=== PATIENT | male | born 1940 ===

== ENCOUNTER 2016-08-08 17:03 | Inpatient (IN) | payer MEDICARE ==
--- NOTE | 2016-08-08 18:19 | RAD ---
HISTORY: weakness COMPARISON: CTA chest from 05/31/2016 FINDINGS: LUNGS: The lungs are clear. PLEURA: No significant pleural effusion identified, no pneumothorax apparent. CARDIOVASCULAR: Normal. OSSEOUS STRUCTURES: No significant abnormalities. VISUALIZED UPPER ABDOMEN: Normal. OTHER FINDINGS: None. IMPRESSION: No active pulmonary disease.
--- NOTE | 2016-08-08 18:29 | ED PDOC ---
HPI:STROKE - Time Time: 17:30 - Historian Historian: Family - Chief Complaint Chief Complaint: Weakness, Facial droop - Onset Onset: Weeks (1) - Timing Timing: Currently Symptomatic - Location Locate right:: Face Locate left: Upper extremity - Notes: Notes:: One week ago pt developed RIGHT facial droop. Seen by ENT for chronic ear infection at that time and diagnosed with bells palsy. Presented today with both RIGHT facial droop and LEFT arm drift that started this morning. Sent to ER for further evaluation. Denies headache. Denies fever. Denies blurry vision or abnormal gait. Numbness (intermittent) to bilateral arms ongoing for weeks. NIHSS Stroke Scale - Date/Time Evaluation Performed Date Performed: 08/08/16 Time Performed: 17:30 When Was NIHSS Performed: Baseline - How Severe is the Stroke Level of Consciousness: 0=Alert LOC to Questions: 0=Both comments correct LOC to commands: 0=Obeys both correctly Best Gaze: 0=Normal Visual: 0=No visual loss Facial: 2=Partial (lower face paralysis) Motor Arm - Left: 1=Drift noted before 10 sec Motor Arm - Right: 0=No drift Motor Leg - Left: 0=No drift Motor Leg - Right: 0=No drift Limb Ataxia: 0=Absent Sensory: 0=Normal Best Language: 0=No aphasia Dysarthia: 1=Mild to moderate slurring Extinction & Inattention (Neglect): 0=Normal, no object Score: 4 rTPA Inclusion/Exclusion - Refusal of Treatment Patient Refused Treatment: No - Inclusion Criteria for Altepase Patient is 18 years or Older: Yes The Clinical Diagnosis of Ischemic Stroke That is Causing a Potentially Disabling Neurological Deficit: Yes Time of Onset is Well Established to be Less Than 270 Minute Before Treatment Would Begin: No Risk/Benefit Discussed With Patient/Family Member Present: No - Exclusion Criteria for Altepase Uncontrolled Hypertension at Time of Treatment (Systolic BP above 185 or Diastolic BP above 110 mmHg): No Past Medical History Reviewed: Historical Data, Nursing Documentation, Vital Signs Vital Signs: Last Vital Signs Temp 97.7 F 08/08/16 17:22 Pulse 106 H 08/08/16 17:22 Resp 16 08/08/16 17:22 BP 140/93 H 08/08/16 17:22 Pulse Ox 98 08/08/16 17:22 - Medical History PMH: CHF, Depression, HTN, Hypercholesterolemia, Hyperthyroidism, Hypothyroidism , Parkinson's Disease, Sleep Apnea, TIA (2014) Denies: Alzheimer's Disease, Anemia, Anxiety, Arthritis, Asthma, Atrial Fibrillation, Bipolar Disorder, Bronchitis, Cardia Arrhythmia, COPD, Crohn's Disease, Dementia, Diverticulitis, Emphysema, Fractures, Gastritis, Gall Bladder Disease, HIV, Kidney Stones, Migraine, Mitral Valve Prolapse, Multiple Sclerosis, Osteoporosis, Pancreatitis, Peripheral Edema, Pneumonia, Post Traumatic Stress Disorder, Pulmonary Embolism, Chronic Kidney Disease, Rheumatoid Arthritis, Schizophrenia, Seizures, Sickle Cell Disease, Sexually Transmitted Disease - Surgical History Surgical History: Denies: Appendectomy, CABG, Carotid Endarterectomy, Cholecystectomy, Coronary Stent, Pacemaker, Tonsillectomy - Family History Family History: States: Unknown Family Hx - Home Medications Home Medications: Ambulatory Orders Medication Instructions Recorded Lorazepam [Ativan] 0.5 mg PO TID PRN 08/08/16 Aspirin [Aspirin Chewable] 81 mg PO DAILY #0 chew 08/11/16 Baclofen [Lioresal] 10 mg PO BID #14 tab 08/11/16 Carbidopa/Levodopa 25/100 mg 1 tab PO BID tab 08/11/16 [Sinemet] Clopidogrel [Plavix] 75 mg PO DAILY tab 08/11/16 Docusate [Colace] 100 mg PO TID cap 08/11/16 Ergocalciferol [Drisdol 50,000 1 cap PO Q7D cap 08/11/16 Intl Units Cap] Famotidine [Pepcid] 20 mg PO BID tab 08/11/16 Levothyroxine [Synthroid] 50 mcg PO DAILY@0630 tab 08/11/16 MetFORMIN [glucoPHAGE] 1,000 mg PO BID tab 08/11/16 QUEtiapine [SEROquel] 50 mg PO HS tab 08/11/16 SITagliptin [Januvia] 100 mg PO DAILY tab 08/11/16 Valacyclovir Hcl [Valacyclovir] 500 mg PO BID@0900,2000 08/11/16 Valsartan [Diovan] 160 mg PO DAILY tab 08/11/16 hydroCHLOROthiazide [Hydrodiuril] 25 mg PO DAILY tab 08/11/16 traMADol [Ultram] 50 mg PO Q6H PRN #0 tab 08/11/16 - Allergies Allergies/Adverse Reactions: Allergies Allergy/AdvReac Type Severity Reaction Status Date / Time No Known Allergies Allergy Verified 12/11/15 11:05 Review of Systems ROS Statement: Except As Marked, All Systems Reviewed And Found Negative (and as per HPI) Neurological: Positive for: Weakness. Negative for: Dizziness Physical Exam - Reviewed Nursing Documentation Reviewed: Yes Vital Signs Reviewed: Yes - Physical Exam Appears: Positive for: No Acute Distress Head Exam: Positive for: ATRAUMATIC, NORMOCEPHALIC Skin: Positive for: Warm Eye Exam: Positive for: EOMI, PERRL ENT: Negative for: Pharyngeal Erythema, Tonsillar Exudate Neck: Positive for: Supple, Pain On Movement Of Neck Cardiovascular/Chest: Positive for: Regular Rate, Rhythm. Negative for: Murmur Respiratory: Positive for: Normal Breath Sounds. Negative for: Wheezing, Respiratory Distress Gastrointestinal/Abdominal: Positive for: Bowel Sounds, Soft. Negative for: Tenderness Back: Positive for: Normal Inspection. Negative for: Vertebral Tenderness Extremity: Negative for: Tenderness, Deformity Lymphatic: Negative for: Adenopathy Neurologic/Psych: Positive for: Alert, Oriented, Motor/Sensory Deficits (see NIHSS), Cerebellar Tests (normal) - Laboratory Results Result Diagrams: 08/09/16 06:15 08/09/16 06:15 - ECG O2 Sat by Pulse Oximetry: 98 Medical Decision Making Medical Decision Making: Impression: Focal weakness. Ddx include but not limited to TIA, CVA, cervical radiculopathy, electrolyte abnormalities, core compression, bells palsy Pt needs hospitalization pending ER workup. CT head: No bleed. No acute findings. [facility] L[facility] resident for admission. Disposition - Clinical Impression Clinical Impression: Weakness of one side of body Counseled Patient/Family Regarding: Studies Performed, Diagnosis - Disposition Disposition Time: 18:00 Condition: GOOD - Pt Status Changed To: Hospital Disposition Of: Inpatient - Admit Certification Admit to Inpatient:: After my assessment, the patient will require hospitalization for at least two midnights. This is because of the severity of symptoms shown, intensity of services needed, and/or the medical risk in this patient being treated as an outpatient. - POA Present On Arrival: Falls Or Trauma (May 2016)
[2016-08-08 18:35] LABS: BASO # 0.1 K/uL (0.0-0.2); BASO % 0.9 % (0.0-2.0); EOS # 0.4 K/uL (0.0-0.7); EOS % 3.5 % (0.0-4.0); HEMATOCRIT 36.8 % (35.0-51.0); LYMPH # 4.2 K/uL (1.0-4.3); MEAN CELL VOLUME 85.2 fl (80.0-94.0); MEAN CORPUSCULAR HEMOGLOBIN 28.5 pg (27.0-31.0); MEAN CORPUSCULAR HGB CONC 33.4 g/dL (33.0-37.0); MEAN PLATELET VOLUME 8.3 fl (7.2-11.7); MONO # 0.7 K/uL (0.0-0.8); NEUT # 6.5 K/uL (1.8-7.0); NEUT % 54.6 % (50.0-75.0); NRBC % 0.1 % (0.0-0.0)
[2016-08-08 18:46] LABS: ALB/GLOB RATIO 1.1 (1.0-2.1); ALKALINE PHOSPHATASE 107 U/L (38-126); ALT/SGPT 23 U/L (21-72); AST/SGOT 24 U/L (17-59); BILIRUBIN,TOTAL 0.3 mg/dl (0.2-1.3); BLOOD UREA NITROGEN 19 mg/dl (9-20); CALCIUM 10.1 mg/dL (8.4-10.2); CARBON DIOXIDE 28 mmol/L (22-30); CHLORIDE 96 mmol/L (98-107); CHOLESTEROL 183 mg/dL (0-199); GFR AFRICAN-AMERICAN > 60; GLUCOSE,RANDOM 165 mg/dL (75-110); MAGNESIUM 1.6 MG/DL (1.6-2.3); PHOSPHOROUS 4.1 mg/dl (2.5-4.5); SODIUM 134 mmol/l (132-148); TOTAL PROTEIN 7.4 G/DL (6.3-8.2)
--- NOTE | 2016-08-08 19:21 | CT ---
EXAM: CT Head Without Intravenous Contrast. CLINICAL HISTORY: 76 years old, male; Signs and symptoms; Weakness, facial; Additional info: Weakness right face and bilateral arma TECHNIQUE: Axial computed tomography images of the head/brain without intravenous contrast. This CT exam was performed using one or more of the following dose reduction techniques: automated exposure control, adjustment of the mA and/or kV according to patient size, and/or use of iterative reconstruction technique. Coronal and sagittal reformatted images were created and reviewed. EXAM DATE/TIME: 08/08/2016 5:40 PM COMPARISON: CT - HEAD W/O CONTRAST 05/30/2016 1:58:50 PM FINDINGS: Brain: There is prominence of sulci gyri and ventricles. There is no midline shift. There is decreased attenuation in periventricular white matter. There are no focal masses. There are no focal hemorrhages. Shahid-white differentiation is visualized. Ventricles: See above. Bones: Cranial vault is intact. Soft tissues: unremarkable Sinuses: There is no acute sinusitis. Ears and mastoids: Middle ears are unremarkable. There is partial opacification of the mastoid tips bilaterally, unchanged. Orbits: Orbits are incompletely imaged IMPRESSION: Atrophy and small vessel disease, no bleed
--- NOTE | 2016-08-08 19:30 | CT ---
EXAM: CT Cervical Spine Without Intravenous Contrast. CLINICAL HISTORY: 76 years old, male; Signs and symptoms; Numbness; Additional info: Bilateral numbness arms TECHNIQUE: Axial computed tomography images of the cervical spine without intravenous contrast. This CT exam was performed using one or more of the following dose reduction techniques: automated exposure control, adjustment of the mA and/or kV according to patient size, and/or use of iterative reconstruction technique. Coronal and sagittal reformatted images were created and reviewed. EXAM DATE/TIME: 08/08/2016 5:42 PM COMPARISON: CR - CERVICAL SPINE COMP W/ F E 08/08/2015 2:44:39 PM FINDINGS: Vertebrae: There is straightening of the cervical lordosis. There is no prevertebral soft tissue swelling. 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 There is fusion of the anterior arch to the clivus. There is fusion of the lateral masses to the skull base. There is absence of the posterior arch of C1.Relationship of the dens with lateral masses of C1 is anatomic. There is minimal anterior wedging at C3, age-indeterminate. C4 to T1 vertebral bodies are normal in height. Posterior elements C2 and T1 are intact. There is minimal anterolisthesis C4 on C5, degenerative. There is degenerative change with disc space narrowing at multiple levels. There is degenerative facet joint disease at multiple levels.Facet joints align anatomically.Spinous processes align in the expected fashion.Bony structures are osteopenic. Discs/spinal canal/neural foramina: See above. Soft tissues: See above. Thyroid: Thyroid is not optimally demonstrated. Lung apices: Lung apices are not optimally evaluated. 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
[2016-08-08 19:32] LABS: PARTIAL THROMBOPLASTIN TIME 27.3 SECONDS (23.3-32.5)
--- NOTE | 2016-08-08 20:35 | CP.PCM.HP ---
History of Present Illness - History of Present Illness History of Present Illness: 76 yo male with PMHx of DM, HTN, Hypothyroidism, HLD, Parkinson disease, chronic mastoiditis presented to PMD clinic earlier today for evaluation of bilateral upper ext numbness, tingling for a week while in rehab. As per daughter, patient also has been experiencing right sided facial swelling which caregiver associated with dental and ear infection; patient was evaluated by Dr Gonzales, given po abx. Caregiver also reports left upper ext weakness during rehab. Patient and caregiver were unable to comment about facial droopiness. Patient was sent to ED by PCP for further evaluation of possible TIA/CVA. Of note, patient was also admitted 2.5 months for syncopal episode, ruled out TIA/ CVA at that time. Though new symptoms at this time. Patient denies chest pain, sob, palpitations, leg weakness, nausea, vomiting, palpitation, blurry vision, fever or chills. PMD: [facility] PMHx: DM, HTN, Hypothyroidism, HLD, Parkinson disease, chronic mastoiditis Meds: as per chart Allergies: NKDA Surgeries: B/L hip replacement ~ 25yrs ago Family hx: non-contributory Social hx: Denies etoh, tobacco, drug use. Though previous EtOH abuse. ED Course: Vitals stable PE notable for right facial droop without involvement of eyebrow, minimal weakness of LUE. CT Head/Cervical obtained as well as CXR. No acute changes or active disease. See report for further details. Present on Admission - Present on Admission Any Indicators Present on Admission: No Review of Systems - Review of Systems All systems: reviewed and no additional remarkable complaints except (mentioned in HPI) Past Patient History - Infectious Disease Hx of Infectious Diseases: None - Past Medical History & Family History Past Medical History?: Yes - Past Social History Smoking Status: Never Smoked - CARDIAC Hx Atrial Fibrillation: No Hx Cardia Arrhythmia: No Hx Congestive Heart Failure: Yes Hx Hypercholesterolemia: Yes Hx Hypertension: Yes Hx Mitral Valve Prolapse: No Hx Pacemaker: No Hx Peripheral Edema: No - PULMONARY Hx Asthma: No Hx Bronchitis: No Hx Chronic Obstructive Pulmonary Disease (COPD): No Hx Emphysema: No Hx Pneumonia: No Hx Pulmonary Embolism: No Hx Sleep Apnea: Yes - NEUROLOGICAL Hx Alzheimer's Disease: No Hx Dementia: No Hx Migraine: No Hx Multiple Sclerosis: No Hx Parkinson's Disease: Yes Hx Seizures: No Hx Transient Ischemic Attacks (TIA): Yes (2014) - HEENT Hx HEENT Problems: No Hx Blind: No Hx Cataracts: No Hx Deafness: No Hx Difficulty Chewing: No Hx Epistaxis: No Hx Glaucoma: No Hx Macular Degeneration: No - RENAL Hx Chronic Kidney Disease: No Hx Kidney Stones: No - ENDOCRINE/METABOLIC Hx Hyperthyroidism: Yes Hx Hypothyroidism: Yes - HEMATOLOGICAL/ONCOLOGICAL Hx Anemia: No Hx Human Immunodeficiency Virus (HIV): No Hx Sickle Cell Disease: No - INTEGUMENTARY Hx Dermatological Problems: No Hx Basil Cell: No Hx Reyes: No Hx Cellulitis: No Hx Eczema: No Hx Melanoma: No Hx Psoriasis: No Hx Squamous Cell: No - MUSCULOSKELETAL/RHEUMATOLOGICAL Hx Arthritis: No Hx Fractures: No Hx Osteoporosis: No Hx Rheumatoid Arthritis: No - GASTROINTESTINAL Hx Crohn's Disease: No Hx Diverticulitis: No Hx Gall Bladder Disease: No Hx Gastritis: No Hx Pancreatitis: No - GENITOURINARY/GYNECOLOGICAL Hx Sexually Transmitted Disorders: No - PSYCHIATRIC Hx Anxiety: No Hx Bipolar Disorder: No Hx Depression: Yes Hx Post Traumatic Stress Disorder: No Hx Schizophrenia: No - SURGICAL HISTORY Hx Appendectomy: No Hx Carotid Endarterectomy: No Hx Cholecystectomy: No Hx Coronary Artery Bypass Graft: No Hx Coronary Stent: No Hx Tonsillectomy: No - ANESTHESIA Hx Anesthesia: Yes Hx Anesthesia Reactions: No Hx Malignant Hyperthermia: No Meds Allergies/Adverse Reactions: Allergies Allergy/AdvReac Type Severity Reaction Status Date / Time No Known Allergies Allergy Verified 12/11/15 11:05 Physical Exam - Constitutional Appears: Well, Non-toxic, No Acute Distress - Head Exam Head Exam: ATRAUMATIC, NORMAL INSPECTION, NORMOCEPHALIC - Eye Exam Eye Exam: EOMI, Normal appearance Pupil Exam: PERRL Additional comments: able to close both eyes without difficulty and against resistance - ENT Exam ENT Exam: Mucous Membranes Moist, Normal Exam, Normal External Ear Exam - Neck Exam Neck exam: Positive for: Normal Inspection. Negative for: Lymphadenopathy, Tenderness - Respiratory Exam Respiratory Exam: Clear to Auscultation Bilateral, NORMAL BREATHING PATTERN. absent: Decreased Breath Sounds, Rhonchi, Wheezes - Cardiovascular Exam Cardiovascular Exam: REGULAR RHYTHM, RRR, +S1, +S2 - GI/Abdominal Exam GI & Abdominal Exam: Hernia (reducible umbilical, no incarceration/strangulation /obstructed), Normal Bowel Sounds, Soft. absent: Tenderness - Extremities Exam Extremities exam: Positive for: calf tenderness, normal inspection, pedal edema (1+ bilaterally), pedal pulses present. Negative for: tenderness - Neurological Exam Neurological exam: Alert, Oriented x3 - Expanded Neurological Exam Expanded Patient oriented to: person, place, time Speech: Fluid Speech Cranial nerves: EOM's Intact: Normal, Facial Palsey w/Forehead Movement: Abnormal Right, Facial Palsey w/o Forehead Movement: Normal, Facial Sensation: Normal, Tongue Deviation: Normal Cerebellar Function: Finger to Nose: Normal Neuro motor strength exam: Left Upper Extremity: 4, Right Upper Extremity: 5, Left Lower Extremity: 5, Right Lower Extremity: 5 Coma Scale Eye Opening: SPONTANEOUS Coma Scale Motor Response: OBEYS COMMANDS Coma Scale Verbal: Oriented Coma Scale Total: 15 - Psychiatric Exam Psychiatric exam: Normal Affect, Normal Mood - Skin Skin Exam: Dry, Intact, Normal Color, Warm Results - Vital Signs Recent Vital Signs: Last Vital Signs Temp 97.7 F 08/08/16 17:22 Pulse 89 08/08/16 17:35 Resp 100 H 08/08/16 17:35 BP 148/92 H 08/08/16 17:35 Pulse Ox 98 08/08/16 18:28 - Labs Result Diagrams: 08/08/16 18:00 08/08/16 18:00 Assessment & Plan (1) Facial weakness Status: Acute (2) Numbness and tingling in left hand Status: Acute (3) HTN (hypertension) Status: Chronic (4) Type 2 diabetes mellitus Status: Chronic (5) Unspecified mastoiditis, bilateral Status: Chronic (6) Hypothyroidism Status: Chronic (7) Parkinson disease Status: Chronic (8) Prophylactic measure Status: Acute - Assessment and Plan (Free Text) Assessment: 76 yo male with PMHx of DM, HTN, Hypothyroidism, HLD, Parkinson disease, chronic mastoiditis with 1 wk history of bilateral hand numbness/tingling and notably LUE weakness with PE findings of right facial droop. 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 Alvarez, appreciate recommendations - Spoke with principal consultant, would like MRI, Carotid U/S, Echo, Lipid panel, HgbA1c - Echo 05/2016 reported LV normal with normal EF, no mention of valve dysfunction - EEG 05/2016 showed findings consistent with encephalopathy - MRI pending - Carotid duplex pending - Added Plavix to ASA regime - Patient on Valtrex 500mg BID for previous upper lip blister as per daughter (2) Numbness and tingling in left hand - Neurology consulted, appreciate recommendations - Vit B12/Folate ordered, follow up - PT/OT eval and treat - Patient was previously on Gabapentin due to side of effects of hallucinations ? no longer takes med (3) HTN (hypertension) - Stable - Continue home meds (4) Type 2 diabetes mellitus - Continue home meds of Metformin and Januvia - Accucheck ACHS - Lipid panel notable for elevated TG - Follow up HgbA1c (5) Mastoiditis - Internal Auditory Canal CT completed 08/05/16 1. Abnormal soft tissue in the left mastoid air cells with destruction of the internal mastoid septations posterior superiorly could represent acute and/ or chronic mastoiditis. 2. Small right mastoid effusion. - Patient was to follow up with ENT, Dr. Gonzales tomorrow for results - Follow up with ENT for further management (6) Hypothyroidism - Continue home med, Levothyroxine 50mcg - f/u TSH in AM (7) Parkinson disease - Continue home med, Sinemet (8) Prophylactic measure - Lovenox 40mg SC daily
[2016-08-09 01:40] LABS: RBC URINE < 1 /hpf (0-3); URINE BILIRUBIN NEGATIVE (NEGATIVE); URINE BLOOD NEGATIVE (NEGATIVE); URINE COLOR YELLOW (YELLOW); URINE GLUCOSE (UA) NEG (Normal); URINE KETONE NEGATIVE (NEGATIVE); URINE LEUKOCYTE ESTERASE NEG Leu/uL (Negative); URINE PROTEIN 30 mg/dL (NEGATIVE); URINE UROBILINOGEN 0.2-1.0 mg/dL (0.2-1.0); WBC URINE < 1 /hpf (0-5)
[2016-08-09] MEDS: Levothyroxine 50 MCG TAB PO SCH (06:14)
[2016-08-09 07:24] LABS: ALKALINE PHOSPHATASE 90 U/L (38-126); ALT/SGPT 26 U/L (21-72); AST/SGOT 22 U/L (17-59); BILIRUBIN,TOTAL 0.5 mg/dl (0.2-1.3); BLOOD UREA NITROGEN 16 mg/dl (9-20); CALCIUM 9.7 mg/dL (8.4-10.2); CARBON DIOXIDE 30 mmol/L (22-30); CHLORIDE 100 mmol/L (98-107); GFR AFRICAN-AMERICAN > 60; GLUCOSE,RANDOM 120 mg/dL (75-110); POTASSIUM 3.9 MMOL/L (3.6-5.0); SODIUM 142 mmol/l (132-148); TOTAL PROTEIN 6.5 G/DL (6.3-8.2)
[2016-08-09 07:33] LABS: BASO # 0.1 K/uL (0.0-0.2); BASO % 0.7 % (0.0-2.0); EOS # 0.5 K/uL (0.0-0.7); EOS % 4.8 % (0.0-4.0); HEMATOCRIT 34.5 % (35.0-51.0); LYMPH # 3.6 K/uL (1.0-4.3); LYMPH % 35.6 % (20.0-40.0); MEAN CELL VOLUME 85.1 fl (80.0-94.0); MEAN CORPUSCULAR HEMOGLOBIN 28.8 pg (27.0-31.0); MEAN CORPUSCULAR HGB CONC 33.8 g/dL (33.0-37.0); MEAN PLATELET VOLUME 8.6 fl (7.2-11.7); MONO # 0.7 K/uL (0.0-0.8); MONO % 7.2 % (0.0-10.0); NEUT # 5.2 K/uL (1.8-7.0); NEUT % 51.7 % (50.0-75.0); RED CELL DISTRIBUTION WIDTH 14.9 % (11.5-14.5)
[2016-08-09 07:51] LABS: THYROID STIMULATING HORMONE 2.54 mIU/ML (0.46-4.68)
--- NOTE | 2016-08-09 07:58 | CARD ---
APPROVED REPORT EKG Measurement Heart [id number] OR [id number] <Conclusion> Sinus rhythm with frequent premature ventricular complexes Right bundle branch block Abnormal ECG
[2016-08-09] MEDS: Enoxaparin 40 mg Syringe SC SCH (08:53)
[2016-08-09] MEDS ORDERED: VALACYCLOVIR HCL 500 MG PO SCH (09:00)
[2016-08-09] MEDS ORDERED: HYDROCHLOROTHIAZIDE PO SCH (09:00)
[2016-08-09] MEDS ORDERED: VALSARTAN PO SCH (09:00)
--- NOTE | 2016-08-09 09:16 | CP.PCM.PN ---
Subjective - Date & Time of Evaluation Date of Evaluation: 08/09/16 Time of Evaluation: 07:05 - Subjective Subjective: - PT was seen at bedside appears to be doing well. He states that his weakness, numbness and tingling of of his hands b/l have resolved today and states he is feeling better. He slept well throughout the night. Denies chest pain, headache , nausea, vomiting. Objective - Vital Signs/Intake and Output Vital Signs (last 24 hours): Temp Pulse Resp BP Pulse Ox 97.6 F 86 20 132/84 97 08/09/16 08:13 08/09/16 08:13 08/09/16 08:13 08/09/16 08:13 08/09/16 08:13 - Medications Medications: Current Medications Aspirin (Aspirin Chewable) 81 mg PO DAILY [facility] Carbidopa/Levodopa (Sinemet) 1 tab PO TID [facility] Last Admin: 08/08/16 22:31 Dose: 1 tab Clopidogrel Bisulfate (Plavix) 75 mg PO DAILY [facility] Docusate Sodium (Colace) 100 mg PO TID [facility] Enoxaparin Sodium (Lovenox) 40 mg SC DAILY [facility] PRN Reason: Protocol Famotidine (Pepcid) 20 mg PO BID [facility] Last Admin: 08/08/16 22:30 Dose: 20 mg Home Med (Valacyclovir Hcl [Valacyclovir]) 500 mg PO BID [facility] Hydrochlorothiazide (Hydrodiuril) 25 mg PO DAILY [facility] Levothyroxine Sodium (Synthroid) 50 mcg PO DAILY@0630 [facility] Last Admin: 08/09/16 06:14 Dose: 50 mcg Lorazepam (Ativan) 0.5 mg PO TID PRN PRN Reason: Anxiety Metformin HCl (Glucophage) 1,000 mg PO BID [facility] Last Admin: 08/08/16 22:29 Dose: 1,000 mg Quetiapine Fumarate (Seroquel) 75 mg PO HS [facility] Last Admin: 08/08/16 22:30 Dose: 75 mg Sitagliptin Phosphate (Januvia) 100 mg PO DAILY [facility] Tramadol HCl (Ultram) 50 mg PO Q6H PRN PRN Reason: Pain, Mild (1-3) Last Admin: 08/08/16 22:31 Dose: 50 mg Valsartan (Diovan) 160 mg PO DAILY [facility] - Labs Labs: 08/09/16 06:15 08/09/16 06:15 PT 10.9 SECONDS (9.6-11.2) 08/08/16 18:00 INR 1.05 (0.92-1.08) 08/08/16 18:00 APTT 27.3 SECONDS (23.3-32.5) 08/08/16 18:00 - Constitutional Appears: No Acute Distress - Head Exam Head Exam: NORMAL INSPECTION - Eye Exam Eye Exam: Normal appearance - Respiratory Exam Respiratory Exam: Clear to Ausculation Bilateral, NORMAL BREATHING PATTERN. absent: Rhonchi, Wheezes - Cardiovascular Exam Cardiovascular Exam: REGULAR RHYTHM, +S1, +S2 - GI/Abdominal Exam GI & Abdominal Exam: Soft, Normal Bowel Sounds. absent: Tenderness Additional comments: Hernia (reducible umbilical, no incarceration/strangulation) - Extremities Exam Extremities Exam: Pedal Edema Additional comments: 1+ - Neurological Exam Neurological Exam: Alert, Awake, CN II-XII Intact, Oriented x3 Additional comments: - Mild right sided facial droop - Sensation and motor intact. Assessment and Plan - Assessment and Plan (Free Text) Assessment: 76 yo male with PMHx of DM, HTN, Hypothyroidism, HLD, Parkinson disease, chronic mastoiditis with 1 wk history of bilateral hand numbness/tingling and notably LUE weakness with PE findings of right facial droop. 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 Alvarze, appreciate recommendations - Spoke with nursing education consultant, would like MRI, Carotid U/S, Echo, Lipid panel, HgbA1c - Echo 05/2016 reported LV normal with normal EF, no mention of valve dysfunction - EEG 05/2016 showed findings consistent with encephalopathy - F/U MRI - F/U Carotid duplex - Patient on Valtrex 500mg BID for previous upper lip blister as per daughter (2) Numbness and tingling in left hand - Neurology consulted, appreciate recommendations - Vit B12 and Folate WNL - PT/OT eval and treat - Patient was previously on Gabapentin due to side of effects of hallucinations ? no longer takes med (3) HTN (hypertension) - Stable - Continue home meds (4) Type 2 diabetes mellitus - Continue home meds of Metformin and Januvia - Accucheck ACHS - Lipid panel notable for elevated TG - Follow up HgbA1c (5) Mastoiditis - Internal Auditory Canal CT completed 08/05/16 1. Abnormal soft tissue in the left mastoid air cells with destruction of the internal mastoid septations posterior superiorly could represent acute and/ or chronic mastoiditis. 2. Small right mastoid effusion. - Patient was to follow up with ENT, Dr. Jefferson on 08/09/16 - Follow up with ENT outpatient (6) Hypothyroidism - Continue home med, Levothyroxine 50mcg - TSH well controlled (7) Parkinson disease - Continue home med, Sinemet (8) Prophylactic measure - Lovenox 40mg SC daily
[2016-08-09 13:28] LABS: FOLATE 10.6 ng/mL
--- NOTE | 2016-08-09 16:48 | US ---
Carotid ultrasound Indication: Right facial droop Technique: Grayscale, color, and duplex Doppler imaging of the bilateral carotid and vertebral arteries. Findings: Peak systolic velocities are as follows (cm/sec) Right: CCA - proximal 73.6 CCA - mid 87.1 CCA- distal 88.7 ECA 103.0 ICA - proximal 103.0 ICA - mid 72.4 ICA - distal 78.0 Vertebral- antegrade 35.4 ICA/CCA- 1.2 Left: CCA - proximal 92.2 CCA - mid 94.7 CCA- distal 72.3 ECA 94.7 ICA - proximal 86.3 ICA - mid 100.2 ICA - distal 75.2 Vertebral- antegrade 55.6 ICA/CCA- 1.4 Impression: No evidence of hemodynamically significant stenosis. Measurement of carotid stenosis is based on velocity parameters that correlate measurement of carotid stenosis is based on velocity parameters that correlate the residual internal carotid diameter with that of the more distal vessel in accordance with the [place] symptomatic carotid endarterectomy Trial (NASCET).
[2016-08-09] MEDS: VALACYCLOVIR HCL 500 MG PO SCH (21:25)
[2016-08-10] MEDS: Levothyroxine 50 MCG TAB PO SCH (05:38)
[2016-08-10] MEDS: Enoxaparin 40 mg Syringe SC SCH (08:37)
[2016-08-10] MEDS: VALACYCLOVIR HCL 500 MG PO SCH (09:38)
--- NOTE | 2016-08-10 12:39 | CP.PCM.PN ---
Subjective - Date & Time of Evaluation Date of Evaluation: 08/10/16 Time of Evaluation: 09:00 - Subjective Subjective: No active complaints. No acute events or overnight issues. Reports resolution of BL UE tingling. Admits to upper back pain when prompted. Denies trauma. Reports baseline motor strength. No changes in gait. Tolerating PO intake. Ambulating without difficulty. Objective - Vital Signs/Intake and Output Vital Signs (last 24 hours): Temp Pulse Resp BP Pulse Ox 97.7 F 82 18 120/72 97 08/10/16 12:29 08/10/16 12:29 08/10/16 12:29 08/10/16 12:29 08/10/16 12:29 - Medications Medications: Current Medications Aspirin (Aspirin Chewable) 81 mg PO DAILY [facility] Last Admin: 08/10/16 08:33 Dose: 81 mg Baclofen (Lioresal) 10 mg PO BID [facility] Last Admin: 08/10/16 08:38 Dose: 10 mg Carbidopa/Levodopa (Sinemet) 1 tab PO BID [facility] Last Admin: 08/10/16 08:34 Dose: 1 tab Clopidogrel Bisulfate (Plavix) 75 mg PO DAILY [facility] Last Admin: 08/10/16 08:36 Dose: 75 mg Docusate Sodium (Colace) 100 mg PO TID [facility] Last Admin: 08/10/16 08:32 Dose: 100 mg Enoxaparin Sodium (Lovenox) 40 mg SC DAILY [facility] PRN Reason: Protocol Last Admin: 08/10/16 08:37 Dose: 40 mg Famotidine (Pepcid) 20 mg PO BID [facility] Last Admin: 08/10/16 08:34 Dose: 20 mg Home Med (Valacyclovir Hcl [Valacyclovir]) 500 mg PO BID@0900,1999 [facility] Last Admin: 08/10/16 09:38 Dose: 500 mg Hydrochlorothiazide (Hydrodiuril) 25 mg PO DAILY [facility] Last Admin: 08/10/16 08:36 Dose: 25 mg Levothyroxine Sodium (Synthroid) 50 mcg PO DAILY@0630 [facility] Last Admin: 08/10/16 05:38 Dose: 50 mcg Lorazepam (Ativan) 0.5 mg PO TID PRN PRN Reason: Anxiety Metformin HCl (Glucophage) 1,000 mg PO BID [facility] Last Admin: 03/25/17 08:32 Dose: 1,000 mg Quetiapine Fumarate (Seroquel) 75 mg PO HS [facility] Last Admin: 08/09/16 21:28 Dose: Not Given Quetiapine Fumarate (Seroquel) 50 mg PO HS [facility] Last Admin: 08/09/16 21:24 Dose: 50 mg Sitagliptin Phosphate (Januvia) 100 mg PO DAILY [facility] Last Admin: 08/10/16 08:33 Dose: 100 mg Tramadol HCl (Ultram) 50 mg PO Q6H PRN PRN Reason: Pain, Mild (1-3) Last Admin: 08/09/16 21:21 Dose: 50 mg Valsartan (Diovan) 160 mg PO DAILY [facility] Last Admin: 08/10/16 08:31 Dose: 160 mg - Labs Labs: PT 10.9 SECONDS (9.6-11.2) 08/08/16 18:00 INR 1.05 (0.92-1.08) 08/08/16 18:00 APTT 27.3 SECONDS (23.3-32.5) 08/08/16 18:00 - Head Exam Head Exam: ATRAUMATIC, NORMOCEPHALIC - Eye Exam Eye Exam: EOMI, Normal appearance - Respiratory Exam Respiratory Exam: NORMAL BREATHING PATTERN. absent: Rales, Rhonchi, Wheezes - Cardiovascular Exam Cardiovascular Exam: REGULAR RHYTHM, +S1, +S2 - GI/Abdominal Exam GI & Abdominal Exam: Soft, Normal Bowel Sounds. absent: Distended, Tenderness - Extremities Exam Extremities Exam: Full ROM. absent: Pedal Edema, Tenderness - Back Exam Back Exam: muscle spasm (Upper back) - Neurological Exam Neurological Exam: Alert, CN II-XII Intact Neuro motor strength exam: Left Upper Extremity: 5, Right Upper Extremity: 5, Left Lower Extremity: 5, Right Lower Extremity: 5 Assessment and Plan - Assessment and Plan (Free Text) Plan: (1) Facial Droop Faint, difficult to appreciate; Unknown chronicity facial weakness CT head unremarkable Neurology consulted, Dr. Alvarez, appreciate recommendations MRI- PENDING results Carotid U/S- WNL HgbA1c- 7.7% HgbA1c - Echo 05/2016 reported LV normal with normal EF, no mention of valve dysfunction - EEG 05/2016 showed findings consistent with encephalopathy - F/U MRI - F/U Carotid duplex - Patient on Valtrex 500mg BID for previous upper lip blister as per daughter (2) Numbness and tingling in BL UE Resolved - Neurology consulted, appreciate recommendations - Vit B12 and Folate WNL - Cervical Spine MRI- PENDING results - MSK spasm- on baclofen, PRN analgesia as indicated - PT/OT eval and treat (3) HTN (hypertension) - Stable - Continue home meds (4) Type 2 diabetes mellitus - Continue home meds of Metformin and Januvia - Accucheck ACHS - Lipid panel notable for elevated TG (5) Mastoiditis - Internal Auditory Canal CT completed 08/05/16 1. Abnormal soft tissue in the left mastoid air cells with destruction of the internal mastoid septations posterior superiorly could represent acute and/ or chronic mastoiditis. 2. Small right mastoid effusion. - Patient was to follow up with ENT, Dr. Jefferson on 08/09/16 - Follow up with ENT outpatient (6) Hypothyroidism - Continue home med, Levothyroxine 50mcg - TSH well controlled (7) Parkinson disease - Continue home med, Sinemet (8) Prophylactic measure - Lovenox 40mg SC daily
--- NOTE | 2016-08-10 13:33 | MRI ---
PROCEDURE: MRI BRAIN WITHOUT CONTRAST HISTORY: right facial droop COMPARISON: None. TECHNIQUE: Multiplanar, multisequence MR images of the brain were obtained without intravenous contrast enhancement. FINDINGS: HEMORRHAGE: None DWI: No evidence of an acute or early subacute infarction. BRAIN PARENCHYMA: No mass effect or edema. Age related atrophy. VENTRICLES: Unremarkable. No hydrocephalus. CRANIUM: Unremarkable. ORBITS: Grossly unremarkable. PARANASAL SINUSES/MASTOIDS: Left maxillary sinus disease. Bilateral mastoid air cell opacification. VASCULAR SYSTEM: Skull base flow voids intact. OTHER FINDINGS: None. IMPRESSION: Atrophy. No acute infarct.
--- NOTE | 2016-08-10 13:36 | MRI ---
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 Fusion of the lateral masses of see 1 to the occipital condyles. 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 There is normal a pollock should between the anterior arch of C1 and the odontoid. There is no evidence of Chiari malformation. No abnormal cord signal is observed. There is multilevel disc desiccation and loss of height. At C3-4 there is a disc ridge complex with mild to moderate spinal stenosis as well as bilateral spondylotic foraminal stenosis. At C5-6 there is a disc ridge complex with no significant cord compression and mild to moderate spinal stenosis. Bilateral spondylotic foraminal stenosis is observed. At C4-5 there is a disc ridge complex without cord compression. There is [id number] spinal stenosis. There is bilateral spondylotic foraminal stenosis. At C6-7 there is a disc ridge complex with bilateral spondylotic foraminal stenosis. At C7-T1 there is a disc bulge. IMPRESSION: Multilevel severe degenerative changes.
[2016-08-10] MEDS ORDERED: Ergocalciferol 50,000 Intl Units Cap PO SCH (14:00)
[2016-08-11] MEDS: Levothyroxine 50 MCG TAB PO SCH (06:47)
[2016-08-11 08:20] VITALS: PULSE 87; RESP 18
[2016-08-11] MEDS: Enoxaparin 40 mg Syringe SC SCH (08:44)
--- NOTE | 2016-08-11 11:40 | CP.PCM.DIS ---
Provider - Provider Date of Admission: 08/09/16 14:46 Attending physician: Poly Pillai MD Time Spent in preparation of Discharge (in minutes): 30 Hospital Course - Lab Results Lab Results: Most Recent Lab Values WBC 10.0 K/uL (4.8-10.8) 08/09/16 06:15 RBC 4.05 Mil/uL (4.40-5.90) L 08/09/16 06:15 Hgb 11.7 g/dL (12.0-18.0) L 08/09/16 06:15 Hct 34.5 % (35.0-51.0) L 08/09/16 06:15 MCV 85.1 fl (80.0-94.0) 08/09/16 06:15 MCH 28.8 pg (27.0-31.0) 08/09/16 06:15 MCHC 33.8 g/dL (33.0-37.0) 08/09/16 06:15 RDW 14.9 % (11.5-14.5) H 08/09/16 06:15 Plt Count 245 K/uL (130-400) 08/09/16 06:15 MPV 8.6 fl (7.2-11.7) 08/09/16 06:15 Neut % (Auto) 51.7 % (50.0-75.0) 08/09/16 06:15 Lymph % (Auto) 35.6 % (20.0-40.0) 08/09/16 06:15 [place] % (Auto) 7.2 % (0.0-10.0) 08/09/16 06:15 Eos % (Auto) 4.8 % (0.0-4.0) H 08/09/16 06:15 Baso % (Auto) 0.7 % (0.0-2.0) 08/09/16 06:15 Neut # 5.2 K/uL (1.8-7.0) 08/09/16 06:15 Lymph # 3.6 K/uL (1.0-4.3) 08/09/16 06:15 [place] # 0.7 K/uL (0.0-0.8) 08/09/16 06:15 Eos # 0.5 K/uL (0.0-0.7) 08/09/16 06:15 Baso # 0.1 K/uL (0.0-0.2) 08/09/16 06:15 PT 10.9 SECONDS (9.6-11.2) 08/08/16 18:00 INR 1.05 (0.92-1.08) 08/08/16 18:00 APTT 27.3 SECONDS (23.3-32.5) 08/08/16 18:00 Sodium 142 mmol/l (132-148) 08/09/16 06:15 Potassium 3.9 MMOL/L (3.6-5.0) 08/09/16 06:15 Chloride 100 mmol/L (98-107) 08/09/16 06:15 Carbon Dioxide 30 mmol/L (22-30) 08/09/16 06:15 Anion Gap 16 (10-20) 08/09/16 06:15 BUN 16 mg/dl (9-20) 08/09/16 06:15 Creatinine 0.8 mg/dL (0.8-1.5) 08/09/16 06:15 Est GFR ( Amer) > 60 08/09/16 06:15 Est GFR (Non-Af Amer) > 60 08/09/16 06:15 POC Glucose (mg/dL) 222 mg/dL (65-110) H 08/08/16 21:49 Random Glucose 120 mg/dL (75-110) H 08/09/16 06:15 Hemoglobin A1c 7.7 % (4.2-6.5) H 08/08/16 18:00 Calcium 9.7 mg/dL (8.4-10.2) 08/09/16 06:15 Phosphorus 4.1 mg/dl (2.5-4.5) 08/08/16 18:00 Magnesium 1.6 MG/DL (1.6-2.3) 08/08/16 18:00 Total Bilirubin 0.5 mg/dl (0.2-1.3) 08/09/16 06:15 AST 22 U/L (17-59) 08/09/16 06:15 ALT 26 U/L (21-72) 08/09/16 06:15 Alkaline Phosphatase 90 U/L (38-126) 08/09/16 06:15 Troponin I < 0.0120 ng/mL (0.00-0.120) 08/08/16 18:00 Total Protein 6.5 G/DL (6.3-8.2) 08/09/16 06:15 Albumin 3.3 g/dL (3.5-5.0) L 08/09/16 06:15 Globulin 3.2 gm/dL (2.2-3.9) 08/09/16 06:15 Albumin/Globulin Ratio 1.0 (1.0-2.1) 08/09/16 06:15 Triglycerides 191 mg/DL (0-149) H D 08/08/16 18:00 Cholesterol 183 mg/dL (0-199) 08/08/16 18:00 LDL Cholesterol Direct 119 mg/dL (0-129) 08/08/16 18:00 HDL Cholesterol 28 MG/DL (30-70) L 08/08/16 18:00 Vitamin B12 338 pg/mL (239-931) 08/09/16 06:15 25-OH Vitamin D Total 17.6 NG/ML (30.0-100.0) L 08/09/16 06:30 Folate 10.6 ng/mL 08/09/16 06:15 TSH 3rd Generation 2.54 mIU/ML (0.46-4.68) 08/09/16 06:15 Urine Color Yellow (YELLOW) 08/09/16 01:15 Urine Clarity Clear (Clear) 08/09/16 01:15 Urine pH 5.0 (5.0-8.0) 08/09/16 01:15 Ur Specific [place] 1.011 (1.003-1.030) 08/09/16 01:15 Urine Protein 30 mg/dL (NEGATIVE) 08/09/16 01:15 Urine Glucose (UA) Neg mg/dL (Normal) 08/09/16 01:15 Urine Ketones Negative mg/dL (NEGATIVE) 08/09/16 01:15 Urine Blood Negative (NEGATIVE) 08/09/16 01:15 Urine Nitrate Negative (NEGATIVE) 08/09/16 01:15 Urine Bilirubin Negative (NEGATIVE) 08/09/16 01:15 Urine Urobilinogen 0.2-1.0 mg/dL (0.2-1.0) 08/09/16 01:15 Ur Leukocyte Esterase Neg Bi/uL (Negative) 08/09/16 01:15 Urine RBC (Auto) < 1 /hpf (0-3) 08/09/16 01:15 Urine Microscopic WBC < 1 /hpf (0-5) 08/09/16 01:15 Blood Type O POSITIVE 08/08/16 18:00 Antibody Screen Negative 08/08/16 18:00 BBK History Checked Patient has bt 08/08/16 18:00 - Hospital Course Hospital Course: 76 YO M w/ PMH of DM, HTN, Hypothyroidism, Parkinson, chronic mastoiditis was admitted for facial droop and b/l numbness and tingling of upper extremities. - During patients hospital stay patients symptoms have improved and the numbness and tingling have resolved. Carotid U/S : WNL: Cervical MRI: showed Multilevel severe degenerative changes (Chronic). Brain MRI: No infarct Head CT: WNL Internal Auditory CT: Showed possible acute and/ or chronic mastoiditis. Pt has an appointment to follow up with his ENT physician outpatient Dr. Alison Jefferson and neurologist Dr. Alvarez. Patient is stable for discharge and is advised to follow up with ENT, neurology and PMD. Dr. Alvarez consult appreciated. - Would like to see the patient outpatient and taper the Sinemet dose. Also would like to do a JUDY scan. - Weight reduction and physiotherapy. - Electrodiagnostic studies to access neuropathy vs radiculopathy. - Sleep study Medications on discharge: Loazepam .5 TID PRN Valcyclovir 500 mg BID Asprin 81mg Docusate 100 mg PO TID Valsartan 160 mg tab Ergocalciferol Hydrochlorothiazide 25mg Sitagliptin 100mg Baclofen 10mg PO BID famotidine 20 mg PO BID Clopidogrel 75 mg PO Quetiapine 50 mg PO Hs Sinemet 25/100mg 1 tab PO BID Levothyroxine 50mcg Tramadol 50 mg PO Q6 Metformin 1,000mg BID Discharge Exam - Head Exam Head Exam: ATRAUMATIC, NORMOCEPHALIC - Eye Exam Eye Exam: Normal appearance - Respiratory Exam Respiratory Exam: NORMAL BREATHING PATTERN. absent: Rales, Wheezes - Cardiovascular Exam Cardiovascular Exam: REGULAR RHYTHM, +S1, +S2 - GI/Abdominal Exam GI & Abdominal Exam: Normal Bowel Sounds, Soft. absent: Tenderness Additional comments: Hernia (reducible umbilical hernia.) - Extremities Exam Additional comments: 1+ pedal edema - Neurological Exam Neurological exam: Alert, CN II-XII Intact, Oriented x3 Additional comments: Sensation and motor intact Discharge Plan - Discharge Medications Prescriptions: Baclofen [Lioresal] 10 mg PO BID #14 tab - Follow Up Plan Condition: GOOD Disposition: HOME/ ROUTINE Instructions: Cervical Radiculopathy (GEN) Additional Instructions: Pt has an appointment to follow up with his ENT physician outpatient Dr. Alison Jefferson and neurologist Dr. Alvarez. Patient is stable for discharge and is advised to follow up with ENT, neurology and PMD. Dr. Alvarez consult appreciated. - Would like to see the patient outpatient and taper the Sinemet dose. Also would like to do a JUDY scan. (Outpatient) - Weight reduction and physiotherapy. (Outpatient) - Electrodiagnostic studies to access neuropathy vs radiculopathy. ( Outpatient) - Sleep study (Outpatient) Medications on discharge: Loazepam .5 TID PRN Valcyclovir 500 mg BID Asprin 81mg Docusate 100 mg PO TID Valsartan 160 mg tab Ergocalciferol Hydrochlorothiazide 25mg Sitagliptin 100mg Baclofen 10mg PO BID famotidine 20 mg PO BID Clopidogrel 75 mg PO daily Quetiapine 50 mg PO Hs Sinemet 25/100mg 1 tab PO BID Levothyroxine 50mcg Tramadol 50 mg PO Q6 Metformin 1,000mg BID Referrals: Franki Alvarez MD [Medical Doctor] - Griffin Jefferson DO [Doctor Optometry] -
--- NOTE | 2016-08-11 12:02 | PN ---
DATE: 08/11/2016 NEUROLOGICAL PROBLEM: Bilateral arm numbness, right more than left side, consistent with cervical radiculopathy associating with myelopathy. PHYSICAL EXAMINATION: VITAL SIGNS: Blood pressure 144/82, mean arterial pressure 102, respiratory rate 18, temperature 97.4, pulse rate is 87 and regular. NEUROLOGIC: The patient is examined in the presence of all family members. He is awake, alert, oriented to person, place and time. He is moving all 4 extremities against gravity. He could walk with a broad based gait, no shuffling gait, no festinant gait. He makes 1-step to turn around. However, he has some proximal weakness, inability to get up out of the chair. His upper extremity examinations shows a history of possible C6 radiculopathy. WORKUP: MRI of the cervical spine reviewed by me, suggestive of some effacement from C3 to C6 region, with spondylitic changes and neural foraminal stenosis. MRI of the brain does not show any acute pathology. The patient also tolerating well with a tapering dose of Sinemet. RECOMMENDATIONS: 1. I will taper the Sinemet dose off because the patient does not seem to be Parkinson disease. If it is really challenging at that point, I would like to do JUDY scan. That will be done as outpatient. 2. Weight reduction and physical therapy should be done. 3. Electrodiagnostic studies should be done to assess his neuropathy versus radiculopathy. 4. Sleep studies to be done to assess his existing sleep apnea, to treat with appropriate CPAP. Patient's condition has been discussed with all family members. The patient will be followed closely with you. Franki Alvarez MD cc: [id number] TT: 08/11/2016 12:02:09 Confirmation # [id number] Dictation # [id number] kenyon PATEL
[2016-08-11 12:21] VITALS: BP 122/63; TEMP 97.8
--- NOTE | 2016-08-12 08:00 | CON ---
DATE: 08/09/2016 REASON FOR CONSULTATION: Possible stroke. CHIEF COMPLAINT: The patient was brought in to the Emergency Room by the family members with a history of a right facial droop following evaluation by his primary care physician and he was advised to come to the hospital for further evaluation. HISTORY OF PRESENT ILLNESS: The patient is a 76-year-old morbidly obese, right- handed male who had a significant history of a fall on 05/30/2016. From that, he had a significant debilitating hospital course of treatment and management. Following that, he was stabilized and he was sent to [facility]. He stayed there for about a few weeks and he was discharged recently. He was seen by neurologist as outpatient. He was started on Parkinson's medication. That medication induced psychotic behavior and he was given psych medication on top of his Parkinson medication as well. Recently, he came with a history of right arm pain and tingling sensation and inability to use the arm with weakness. These symptoms come and go. At times, he has inability to stand and the leg gives out. No history of loss of consciousness, no history of tonic-clonic rhythmic activities. However, he has some tremor intermittently. PAST MEDICAL HISTORY: Diabetes mellitus, hypercholesterolemia, hypothyroidism, obstructive sleep apnea, congestive heart failure, syncopal attack, Parkinson disease and dementia. MEDICATIONS: Aspirin, Colace, Diovan, Glucophage, HydroDIURIL, Januvia, Lovenox, Pepcid, Plavix, Seroquel, Sinemet, levothyroxine and Ultram. PHYSICAL EXAMINATION: VITAL SIGNS: Blood pressure 142/84, mean arterial pressure of 103, respiratory rate 16, temperature afebrile. NECK: Supple. No carotid bruit. HEART SOUNDS: Tachycardia. EXTREMITIES: 1+ pitting edema. NEUROLOGIC EXAMINATION: MENTAL STATUS: The patient is examined in the presence of his family members. He is awake, alert, oriented to person, place, and time. Speech is pharyngeal voice. No masked face. CRANIAL NERVES: Visual field intact. Pupils reactive to light. Extraocular movements are slightly impaired in all directions. No facial sensory deficit. Mild facial asymmetry manifesting as a flattening of the right nasolabial fold. Hearing seems to be intact. MOTOR: On outstretched hands with eyes closed, no drift noted. Power is equal in all 4 extremities. Tone is increased in lower extremities and his arm. DEEP TENDON REFLEXES: Biceps and brachioradialis 1+ on the right side. Left side: They are 2+. Both brachioradialis are trace. Both triceps are 1+. Both knee and ankle are absent. Plantars are upgoing on either side. 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 No cortical sensory loss. COORDINATION: [id number] test is intact. GAIT: Broad based gait. No shuffling gait. No festinant gait. He moves turnaround with 1 step . The patient does not have cogwheel rigidity. No resting tremor. CONCLUSION: 1. 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 2. 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 3. 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 The examination as well as the history, but I do not think patient does have Parkinson disease at present. WORKUP: CT of the brain showed mild atrophy with small vessel disease. 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 MRI of the brain reviewed by me showed mild atrophy with periventricular ischemic changes. No acute stroke process noted. MRI of the cervical spine showed multilevel region disk spaces narrowed with effacement of the thecal sac. The patient also showed evidence of neuroforaminal stenosis on the right side. BLOOD WORKUP: WBC 10.0, hemoglobin 11.7, hematocrit 34.5, platelets 245. PT 10.9, INR 1.05, PTT 27.3. Sodium 142, potassium 3.9, chloride 100, bicarbonate 30, BUN 16, glucose 120, hemoglobin A1c 7.7. Triglyceride 191, cholesterol 183. B12 338. Vitamin D 17.6. RECOMMENDATIONS: 1. Baclofen is ordered 10 mg twice a day. 2. I would like to taper off Sinemet to b.i.d. and see how he does, how he responds on tapering the dose. 3. Physical therapy, and fall precautions should be followed. 4. The patient should have a polysomnogram to assess his obstructive sleep apnea versus obesity hypoventilation syndrome. 5. The patient will be followed closely with you. 6. The patient's condition has been extensively discussed with the family members. They agreed with my plan of management. Franki Alvarez MD cc: [id number] TT: 08/09/2016 21:10:54 Confirmation # [id number] Dictation # [id number] [id number]
[2016-08-12 14:58] VITALS: O2SAT 98
== END 2016-08-11 13:30 | disposition home or self-care (01) | DRG 92 ==
LOC: H.ER 17:03 → H.ERHOLD 19:53 → H.TEL 20:50 → OBSVTOIN 08-09 14:46
PROVIDERS: ADMIT Family Medicine Geriatric Medicine; ATTEND Family Medicine Geriatric Medicine
DX: R29.810 Facial weakness (principal); G95.9 Disease of spinal cord, unspecified; G20 Parkinson's disease; F03.90 Unspecified dementia, unspecified severity, without behavioral disturbance, psychotic disturbance, mood disturbance, and anxiety; I50.9 Heart failure, unspecified; I11.0 Hypertensive heart disease with heart failure; E11.9 Type 2 diabetes mellitus without complications; H70.13 Chronic mastoiditis, bilateral; E66.01 Morbid (severe) obesity due to excess calories; E03.9 Hypothyroidism, unspecified; G47.33 Obstructive sleep apnea (adult) (pediatric); Z68.34 Body mass index [BMI] 34.0-34.9, adult; G62.9 Polyneuropathy, unspecified; I73.9 Peripheral vascular disease, unspecified; E78.00 Pure hypercholesterolemia, unspecified; Z86.73 Personal history of transient ischemic attack (TIA), and cerebral infarction without residual deficits; Z96.643 Presence of artificial hip joint, bilateral; M54.12 Radiculopathy, cervical region; Z79.02 Long term (current) use of antithrombotics/antiplatelets

== ENCOUNTER 2016-08-29 05:16 | Emergency (ER) | payer MEDICARE ==
[2016-08-29 05:36] VITALS: BP 146/86; PULSE 92; RESP 18; TEMP 98.2; O2SAT 98
--- NOTE | 2016-08-29 06:29 | ED PDOC ---
HPI: Altered Mental Status Time Seen by Provider: 08/29/16 05:35 Chief Complaint (Nursing): Trauma Chief Complaint (Provider): AMS History Per: Patient, Family History/Exam Limitations: None Current Symptoms Are (Timing): Still Present Description Of Symptoms: Not At Baseline Severity: Mild Associated Symptoms: Falling Additional Complaint(s): Patient is a 76 year old male, who has a history of dementia, brought in by his daughter complaining of altered mental state. Daughter also reports that the patient has been falling often. Patient fell yesterday and refused to go to the hospital. Patient fell today when attempting to go to the bathroom. Daughter gave patient 1 mg Ativan at 1:00 because patient was threating to leave the house. Patient has been depressed lately about his late daughter that passed a year ago. Patient denies all complaints at this time. pMD: none NIHSS Stroke Scale - Date/Time Evaluation Performed Date Performed: 08/29/16 Time Performed: 05:40 When Was NIHSS Performed: Baseline - How Severe is the Stroke Level of Consciousness: 0=Alert LOC to Questions: 0=Both comments correct LOC to commands: 0=Obeys both correctly Best Gaze: 0=Normal Visual: 0=No visual loss Facial: 0=Normal Motor Arm - Left: 0=No drift Motor Arm - Right: 0=No drift Motor Leg - Left: 0=No drift Motor Leg - Right: 0=No drift Limb Ataxia: 0=Absent Sensory: 0=Normal Best Language: 0=No aphasia Dysarthia: 0=Normal articulation Extinction & Inattention (Neglect): 0=Normal, no object Score: 0 Past Medical History Reviewed: Historical Data, Nursing Documentation, Vital Signs Vital Signs: Last Vital Signs Temp 98.2 F 08/29/16 05:31 Pulse 92 H 08/29/16 05:31 Resp 18 08/29/16 05:31 BP 146/86 08/29/16 05:31 Pulse Ox 98 08/29/16 05:31 - Medical History PMH: CHF, Depression, HTN, Hypercholesterolemia, Hyperthyroidism, Hypothyroidism , Parkinson's Disease, Sleep Apnea, TIA (2014) Denies: Alzheimer's Disease, Anemia, Anxiety, Arthritis, Asthma, Atrial Fibrillation, Bipolar Disorder, Bronchitis, Cardia Arrhythmia, COPD, Crohn's Disease, Dementia, Diverticulitis, Emphysema, Fractures, Gastritis, Gall Bladder Disease, HIV, Kidney Stones, Migraine, Mitral Valve Prolapse, Multiple Sclerosis, Osteoporosis, Pancreatitis, Peripheral Edema, Pneumonia, Post Traumatic Stress Disorder, Pulmonary Embolism, Chronic Kidney Disease, Rheumatoid Arthritis, Schizophrenia, Seizures, Sickle Cell Disease, Sexually Transmitted Disease - Surgical History Surgical History: Denies: Appendectomy, CABG, Carotid Endarterectomy, Cholecystectomy, Coronary Stent, Pacemaker, Tonsillectomy - Family History Family History: States: Unknown Family Hx - Home Medications Home Medications: Ambulatory Orders Medication Instructions Recorded Lorazepam [Ativan] 0.5 mg PO TID PRN 08/08/16 Aspirin [Aspirin Chewable] 81 mg PO DAILY #0 chew 08/11/16 Baclofen [Lioresal] 10 mg PO BID #14 tab 08/11/16 Carbidopa/Levodopa 25/100 mg 1 tab PO BID tab 08/11/16 [Sinemet] Clopidogrel [Plavix] 75 mg PO DAILY tab 08/11/16 Docusate [Colace] 100 mg PO TID cap 08/11/16 Ergocalciferol [Drisdol 50,000 1 cap PO Q7D cap 08/11/16 Intl Units Cap] Famotidine [Pepcid] 20 mg PO BID tab 08/11/16 Levothyroxine [Synthroid] 50 mcg PO DAILY@0630 tab 08/11/16 MetFORMIN [glucoPHAGE] 1,000 mg PO BID tab 08/11/16 QUEtiapine [SEROquel] 50 mg PO HS tab 08/11/16 SITagliptin [Januvia] 100 mg PO DAILY tab 08/11/16 Valacyclovir Hcl [Valacyclovir] 500 mg PO BID@0900,2000 08/11/16 Valsartan [Diovan] 160 mg PO DAILY tab 08/11/16 hydroCHLOROthiazide [Hydrodiuril] 25 mg PO DAILY tab 08/11/16 traMADol [Ultram] 50 mg PO Q6H PRN #0 tab 08/11/16 - Allergies Allergies/Adverse Reactions: Allergies Allergy/AdvReac Type Severity Reaction Status Date / Time No Known Allergies Allergy Verified 12/11/15 11:05 Review of Systems ROS Statement: Except As Marked, All Systems Reviewed And Found Negative Constitutional: Positive for: Other (altered mental state). Negative for: Fever Respiratory: Negative for: Cough, Shortness of Breath Psych: Positive for: Depression. Negative for: Anxiety Physical Exam - Reviewed Nursing Documentation Reviewed: Yes Vital Signs Reviewed: Yes - Physical Exam Appears: Positive for: Well, Non-toxic, No Acute Distress Head Exam: Positive for: ATRAUMATIC, NORMAL INSPECTION, NORMOCEPHALIC Skin: Positive for: Normal Color, Warm, DRY Cardiovascular/Chest: Positive for: Regular Rate, Rhythm. Negative for: Gallop , Murmur Respiratory: Positive for: Normal Breath Sounds. Negative for: Decreased Breath Sounds, Accessory Muscle Use, Rhonchi, Respiratory Distress Extremity: Positive for: Normal ROM Neurologic/Psych: Positive for: Alert, powertrain engineer II-XII (intact), Oriented (x2 to person and place at baseline as per daughter), Cerebellar Tests (negative), Gait (steady). Negative for: Motor/Sensory Deficits, Mood/Affect, Facial Droop - ECG O2 Sat by Pulse Oximetry: 98 Medical Decision Making Medical Decision Making: Time: 5:40 Impression: worsening dementia v electrolyte imbalance v UTI v psychiatric issue Plan: CT head BMP Drug Screen Troponin UDip CBC CXR Urine Culture UA 7:00 Patient signed out to Dr. caceres. Pending labs and reeval Scribe Attestation: Documented by Pat Meng acting as a scribe for Antonino Regan MD. Scribe Attestation: All medical record entries made by the Scribe were at my direction and personally dictated by me. I have reviewed the chart and agree that the record accurately reflects my personal performance of the history, physical exam, medical decision making, and the department course for this patient. I have also personally directed, reviewed, and agree with the discharge instructions and disposition. Disposition - Clinical Impression Clinical Impression: Altered mental status - Patient ED Disposition Is Patient to be Admitted: Transfer of Care - Disposition Disposition: Transfer of Care Disposition Time: 07:00 Condition: STABLE Patient Signed Over To: Breana Caceres
--- NOTE | 2016-08-29 06:38 | CT ---
EXAM: CT Head Without Intravenous Contrast CLINICAL HISTORY: 76 years old, male; Injury or trauma; Fall; Initial encounter; Blunt trauma (contusions or hematomas); Additional info: S/P fall TECHNIQUE: Axial computed tomography images of the head/brain without intravenous contrast. This CT exam was performed using one or more of the following dose reduction techniques: automated exposure control, adjustment of the mA and/or kV according to patient size, and/or use of iterative reconstruction technique. Coronal and sagittal reformatted images were created and reviewed. COMPARISON: CT - HEAD W/O CONTRAST 08/08/2016 6:48:41 PM FINDINGS: Brain: There is moderate prominence of ventricles and sulci, compatible with moderate atrophy. There is mild diminished density of the white matter bilaterally, consistent with mild microangiopathy. There is no evidence of intracranial hemorrhage. No evidence of acute territorial infarction. No edema. Ventricles: See above. Bones/joints: Unremarkable. No acute fracture. Soft tissues: Unremarkable. Sinuses: There is near-complete opacification of the left maxillary sinus. Mastoid air cells: Unremarkable as visualized. No mastoid effusion. IMPRESSION: 1. No evidence for acute intracranial abnormality or displaced calvarial fracture. 2. Additional incidental and/or chronic findings as described.
--- NOTE | 2016-08-29 07:07 | ED PDOC ---
- Laboratory Results Result Diagrams: 08/29/16 06:45 08/29/16 06:45 - ECG O2 Sat by Pulse Oximetry: 98 (RA) Pulse Ox Interpretation: Normal - Radiology X-Ray: Read By Radiologist Medical Decision Making Medical Decision Makin Signed over to me by Abdoulaye Regan MD pending CT abd/pel and reassessment. Presented last night with hx of frequent falls and worsening dementia. He has hx of admission to [facility] 0816: Patient in pain, morphine 4mg ordered. CT abd/pel w/o contrast canceled. CT abd/ pel w/ contrast ordered. 0945 CT abd/pel Impression: No acute abdominal or pelvic abnormality. Specifically, no evidence of solid organ injury, hemoperitoneum or pneumoperitoneum. No acute fractures. CT Head w/o Impression No evidence for acute intracranial abnormality or displaced calvarial fracture. 0948 EKG from previous shift reviewed, no acute changes. Labs grossly normal. Spoke to daughter who requests psych consult for worsening dementia. 1025 CXR Impression: No active disease Psych was consulted. Psych reports that patient is AAOx3 and cleared for discharge. He will not sign in and does not meet criteria for involuntary admission. Daughter feels comfortable taking patient home and spoke at length with workers compensation paralegal Racquel. Disposition - Clinical Impression Clinical Impression: Fall - POA Present On Arrival: None - Disposition Disposition: Routine/Home Disposition Time: 12:21 Condition: GOOD Additional Instructions: Follow up with PMD within 2 days. Return to ED if condition worsens. Instructions: Fall Prevention (DC) Additional Comments - Additional Comments Additional Comments: Scribe Attestation: Documented by Emile Shah acting as a scribe for Breana Reyez MD. Scribe Attestation: All medical record entries made by the Scribe were at my direction and personally dictated by me. I have reviewed the chart and agree that the record accurately reflects my personal performance of the history, physical exam, medical decision making, and the department course for this patient. I have also personally directed, reviewed, and agree with the discharge instructions and disposition.
[2016-08-29 07:23] LABS: BASO # 0.1 K/uL (0.0-0.2); BASO % 0.9 % (0.0-2.0); EOS # 0.6 K/uL (0.0-0.7); EOS % 6.1 % (0.0-4.0); HEMATOCRIT 35.3 % (35.0-51.0); LYMPH # 3.3 K/uL (1.0-4.3); LYMPH % 35.8 % (20.0-40.0); MEAN CELL VOLUME 85.4 fl (80.0-94.0); MEAN CORPUSCULAR HEMOGLOBIN 29.3 pg (27.0-31.0); MEAN CORPUSCULAR HGB CONC 34.3 g/dL (33.0-37.0); MEAN PLATELET VOLUME 9.3 fl (7.2-11.7); MONO # 0.8 K/uL (0.0-0.8); MONO % 8.3 % (0.0-10.0); NEUT # 4.5 K/uL (1.8-7.0); NEUT % 48.9 % (50.0-75.0); NRBC % 0.1 % (0.0-0.0); RED CELL DISTRIBUTION WIDTH 15.1 % (11.5-14.5); WHITE BLOOD COUNT 9.1 K/uL (4.8-10.8)
[2016-08-29 07:30] LABS: BLOOD UREA NITROGEN 24 mg/dl (9-20); CARBON DIOXIDE 26 mmol/L (22-30); CHLORIDE 99 mmol/L (98-107); GFR AFRICAN-AMERICAN > 60; GLUCOSE,RANDOM 122 mg/dL (75-110); POTASSIUM 3.9 MMOL/L (3.6-5.0); SODIUM 140 mmol/l (132-148)
[2016-08-29] MEDS ORDERED: Iohexol 300 100 ML IJ ONE (08:26)
[2016-08-29] MEDS ORDERED: Sodium Chloride 0.9% 50 ML IV ONE (08:26)
--- NOTE | 2016-08-29 09:39 | CT ---
PROCEDURE: CT Abdomen and Pelvis with contrast HISTORY: fall with back pain COMPARISON: None. TECHNIQUE: CT scan of the abdomen and pelvis was performed after administration of intravenous contrast. Oral contrast was not administered. Coronal and sagittal reformatted images were obtained. Contrast dose: 95 mL Omnipaque 300 Radiation dose: Total exam DLP = 1061.23 mGy-cm. This CT exam was performed using one or more of the following dose reduction techniques: Automated exposure control, adjustment of the mA and/or kV according to patient size, and/or use of iterative reconstruction technique. FINDINGS: LOWER THORAX: There is dependent atelectasis in both lungs. LIVER: The liver is normal in size and there is homogeneous enhancement. There is a 2.3 cm simple cyst in the anterior right hepatic lobe. No intrahepatic biliary ductal dilatation. GALLBLADDER AND BILE DUCTS: There are no calcified gallstones. PANCREAS: The pancreas is normal in size and there is homogeneous enhancement without focal mass or ductal dilatation. SPLEEN: The spleen is normal in size and there is homogeneous enhancement without focal mass. ADRENALS: Both adrenal glands are normal in size without discrete nodule. KIDNEYS AND URETERS: Both kidneys are normal in size and there is homogeneous enhancement without hydronephrosis or focal mass. VASCULATURE: The aorta is tortuous and there are atherosclerotic aortoiliac calcifications. No aortic aneurysm. BOWEL: The small bowel loops are normal in caliber. There is moderate amount of stool in the colon. APPENDIX: Normal appendix. PERITONEUM: No free fluid. No free air. LYMPH NODES: No enlarged lymph nodes. BLADDER: The bladder is normal in appearance. 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 BONES: There is diffuse bone demineralization and multilevel degenerative changes in the spine with multilevel compression deformities likely osteopenic in etiology. OTHER FINDINGS: There is a small fat containing umbilical hernia. There is a small sliding hiatal hernia. IMPRESSION: No acute abdominal or pelvic abnormality. Specifically, no evidence of solid organ injury, hemoperitoneum or pneumoperitoneum. No acute fractures.
--- NOTE | 2016-08-29 09:52 | RAD ---
PROCEDURE: CHEST RADIOGRAPH, 1 VIEW HISTORY: ams COMPARISON: 08/08/2016 FINDINGS: LUNGS: Clear. PLEURA: No pneumothorax or pleural fluid seen. CARDIOVASCULAR: Normal. OSSEOUS STRUCTURES: No significant abnormalities. VISUALIZED UPPER ABDOMEN: Normal. OTHER FINDINGS: None. IMPRESSION: No active disease.
== END 2016-08-29 12:36 | disposition home or self-care (01) ==
LOC: H.ER 05:16
DX: R41.82 Altered mental status, unspecified (principal); F03.90 Unspecified dementia, unspecified severity, without behavioral disturbance, psychotic disturbance, mood disturbance, and anxiety; G20 Parkinson's disease; I10 Essential (primary) hypertension; E78.00 Pure hypercholesterolemia, unspecified; M54.9 Dorsalgia, unspecified; Z79.82 Long term (current) use of aspirin; Z79.84 Long term (current) use of oral hypoglycemic drugs; Z86.73 Personal history of transient ischemic attack (TIA), and cerebral infarction without residual deficits; I50.9 Heart failure, unspecified; E03.9 Hypothyroidism, unspecified
CPT/HCPCS: 70450; 71010; 74177; 80048; 82948; 84484; 85025; 96374; 99284; J2270; Q9967